=== PATIENT | male | born 1935 | race Caucasian/White ===

== ENCOUNTER 2021-01-31 18:30 | Emergency (ER) | payer MEDICARE, OTHER ==
[~2021-01-31 18:30] MED LIST: Morphine 2 MG/ML SYRINGE IVPUSH ONE
--- NOTE | 2021-01-31 18:33 | EDM.PDOC ---
<Ethan Miranda - Last Filed: 01/31/21 18:27> ED HPI GENERAL MEDICAL PROBLEM - General Chief Complaint: Lower Extremity Injury/Pain Stated Complaint: [facility] Time Seen by Provider: 01/31/21 18:16 Source of Information: Reports: Patient, EMS History Limitations: Reports: No Limitations - History of Present Illness INITIAL COMMENTS - FREE TEXT/NARRATIVE: This 85 yo male patient was brought to the ED by [facility] due to left hip pain. The patient [place] The patient reports pain in his left hip with movement. The patient denied any loss of consciousness before, during or after the fall. The patient's left leg is externally rotated and shortened. Onset: Today Duration: Minutes: Location: Reports: Lower Extremity, Left Quality: Reports: Ache Severity: Moderate Improves with: Reports: Rest Worsens with: Reports: Movement Context: Reports: Activity (ground level fall) Associated Symptoms: Reports: No Other Symptoms - Related Data Allergies Allergy/AdvReac Type Severity Reaction Status Date / Time Penicillins Allergy Other Verified 01/31/21 18:21 Social & Family History - Tobacco Use Tobacco Use Status *Q: Former Tobacco User Used Tobacco, but Quit: Yes Month/Year Tobacco Last Used: hasn't smoked in 50 years - Caffeine Use Caffeine Use: Reports: Coffee, Soda, Tea, Other - Recreational Drug Use Recreational Drug Use: No Review of Systems - Review of Systems Review Of Systems: Comprehensive ROS is negative, except as noted in HPI. ED EXAM, GENERAL - Physical Exam Exam: See Below Exam Limited By: No Limitations General Appearance: Alert, WD/WN, Moderate Distress Eye Exam: Bilateral Eye: EOMI, Normal Inspection, PERRL Ears: Normal External Exam, Normal Canal, Hearing Grossly Normal, Normal TMs Nose: Normal Inspection, Normal Mucosa, No Blood Throat/Mouth: Normal Inspection, Normal Lips, Normal Teeth, Normal Gums, Normal Oropharynx, Normal Voice, No Airway Compromise Head: Atraumatic, Normocephalic Neck: Normal Inspection, Supple, Non-Tender, Full Range of Motion Respiratory/Chest: No Respiratory Distress, Lungs Clear, Normal Breath Sounds, No Accessory Muscle Use, Chest Non-Tender Cardiovascular: Normal Peripheral Pulses, Regular Rate, Rhythm, No Edema, No Gallop, No JVD, No Murmur, No Rub GI/Abdominal: Normal Bowel Sounds, Soft, Non-Tender, No Organomegaly, No Distention, No Abnormal Bruit, No Mass (Male) Exam: Deferred Rectal (Males) Exam: Deferred Back Exam: Normal Inspection, Full Range of Motion, NT Extremities: Leg Pain (left hip pain) Neurological: Alert, Oriented, CN II-XII Intact, Normal Cognition Psychiatric: Normal Affect, Normal Mood Skin Exam: Warm, Dry, Intact, Normal Color, No Rash Lymphatic: No Adenopathy Departure - Departure Disposition: DC/Tfer to [facility] 02 Clinical Impression: Fracture of neck of femur, hip - Discharge Information Forms: ED Department Discharge Sepsis Event Note (ED) - Evaluation Sepsis Screening Result: No Definite Risk <Adrian Singh - Last Filed: 01/31/21 19:29> Course - Vital Signs Text/Narrative:: Care was endorsed to me at change of shift pending a x-ray on the gentleman's left hip, the patient is an unfortunate 85-year-old diabetic who [place] and [place]pped over a step fell onto his left hip, the plain film shows a left femoral neck fracture, the patient with like to be transferred to [facility] as that is closer to his [place] [address] we called [facility] who paged Dr. Houser who called us back at 1924 [place] [facility] [place] V/S: Last Vital Signs Temp 98.4 F 01/31/21 18:16 Pulse 84 01/31/21 18:16 Resp 18 01/31/21 18:16 BP 164/97 H 01/31/21 18:16 Pulse Ox 100 01/31/21 18:16 - Orders/Labs/Meds Meds: Medications Discontinued Medications Generic Name Dose Route Start Last Admin Trade Name Freq PRN Reason Stop Dose Admin Morphine Sulfate 2 mg 01/31/21 18:17 01/31/21 18:28 Morphine 2 Mg/Ml Syringe IVPUSH 01/31/21 18:18 2 mg ONETIME ONE Administration Departure - Departure Time of Disposition: 19:29 Condition: Fair - Discharge Information *PRESCRIPTION DRUG MONITORING PROGRAM REVIEWED*: No *COPY OF PRESCRIPTION DRUG MONITORING REPORT IN PATIENT DONNA: No Sepsis Event Note (ED) - Focused Exam Vital Signs: Vital Signs Temp Pulse Resp BP Pulse Ox 01/31/21 18:16 98.4 F 84 18 164/97 H 100
--- NOTE | 2021-01-31 19:17 | CR ---
PROCEDURE INFORMATION: Exam: XR Left Hip Exam date and time: 01/31/2021 6:40 PM Age: 85 years old Clinical indication: Other: Fall; Additional info: Left hip pain, lateral rotation and shortened TECHNIQUE: Imaging protocol: XR Left hip. Views: 2 or 3 views hip with pelvis when performed. COMPARISON: No relevant prior studies available. FINDINGS: Bones/joints: Acute mildly displaced fracture through the left femoral neck. No dislocation. No other acute osseous abnormality. Soft tissues: Unremarkable. IMPRESSION: Acute mildly displaced left femoral neck fracture.
== END 2021-01-31 20:15 ==
LOC: DL.ED 18:30
DX: S72.002A Fracture of unspecified part of neck of left femur, initial encounter for closed fracture (principal); Z88.0 Allergy status to penicillin; Z87.891 Personal history of nicotine dependence; W01.0XXA Fall on same level from slipping, tripping and stumbling without subsequent striking against object, initial encounter
CPT/HCPCS: 73502; 99285; J2270; 96374